=== PATIENT | male | born 1995 | race African-American/Black ===

== ENCOUNTER 2018-07-07 20:14 | Emergency (ER) | payer SELFPAY ==
[~2018-07-07] VITALS: Ht 162.6 cm; Wt 65.8 kg
[2018-07-07 20:27] VITALS: BP 138/85
--- NOTE | 2018-07-07 20:31 | Emergency Room Report ---
History of Present Illness General Chief Complaint: Medical Clearance Source: Patient Present Illness HPI reports body aches over thepast two days gentleman Allergies: Coded Allergies: No Known Allergies (Unverified , 07/07/18) Nursing Documentation-[facility] Past Medical History: No Stated History Physical Exam Vital Signs Date Time Temp Pulse Resp B/P (MAP) Pulse Ox O2 Delivery O2 Flow Rate FiO2 07/07/18 20:19 98.2 78 16 138/85 98 Room Air Medical Decision Making Last Vital Signs Date Time Temp Pulse Resp B/P (MAP) Pulse Ox O2 Delivery O2 Flow Rate FiO2 07/07/18 20:19 98.2 78 16 138/85 98 Room Air Slime Nicholas DO Jul 07, 2018 20:31
[2018-07-07 20:54] VITALS: BP 130/83
[2018-07-07 20:55] VITALS: BP 130/83
== END 2018-07-07 20:50 ==
LOC: EMR 20:50
DX: Z02.89 Encounter for other administrative examinations (principal); M79.10 Myalgia, unspecified site
CPT/HCPCS: 99283